=== PATIENT | female | born 1955 | race Caucasian/White ===

== ENCOUNTER 2016-10-30 21:36 | Emergency (ER) | payer OTHER ==
[2016-10-30] MEDS ORDERED: PHENAZOPYRIDINE 100 MG TABLET PO STA (22:10)
[2016-10-30] MEDS ORDERED: NITROFURANTOIN MACRO 100 MG CAPSULE PO STA (22:10)
[2016-10-30] MEDS ORDERED: NITROFURANTOIN MACRO 100 MG CAPSULE PO ONE (22:17)
[2016-10-30] MEDS ORDERED: PHENAZOPYRIDINE 100 MG TABLET PO ONE (22:17)
== END 2016-10-30 22:28 | disposition home or self-care (01) ==
DX: N30.00 Acute cystitis without hematuria (principal); I10 Essential (primary) hypertension; E78.00 Pure hypercholesterolemia, unspecified; E11.9 Type 2 diabetes mellitus without complications
CPT/HCPCS: 81001; 87077; 87086; 87181; 99283; A9270

== ENCOUNTER 2018-03-08 09:57 | Outpatient (CLI) | payer OTHER ==
[2018-03-08 17:38] LABS: HB2 TOTAL 14.6 g/dL; HEMOGLOBIN A1C 0.6 g/dL; HEMOGLOBIN A1C % 5.9 % (4.6-6.2)
[2018-03-08 17:46] LABS: ALBUMIN 4.3 g/dL (3.2-5.5); ALBUMIN/GLOBULIN RATIO 1.3 (1.0-2.2); ALKALINE PHOSPHATASE 54 IU/L (42-121); ALT ALANINE AMINOTRANSFERASE 17 IU/L (10-60); AST ASPARTATE AMINOTRANSFERASE 17 IU/L (10-42); BUN - BLOOD UREA NITROGEN 17 mg/dL (6-20); CALCIUM 9.2 mg/dL (8.5-10.3); CARBON DIOXIDE - CO2 28 mmol/L (21-32); CHLORIDE 104 mmol/L (101-111); CHOL/HDL RATIO 2.8 (<4.4); CHOLESTEROL 143 mg/dL; CREATININE 0.8 mg/dL (0.4-1.0); GFR - MDRD 73 (>89); GLUCOSE 108 mg/dL (70-100); HDL CHOLESTEROL 51 mg/dL; LDL CHOLESTEROL,CALCULATED 80 mg/dL; LDL/HDL RATIO 1.6 (<4.4); SODIUM 139 mmol/L (135-145); TOTAL PROTEIN 7.5 g/dL (6.7-8.2); VLDL CHOLESTEROL 12 mg/dL
== END 2018-03-08 09:58 | disposition home or self-care (01) ==
LOC: LAB.F 09:57
PROVIDERS: ATTEND Physician Assistant
DX: E11.9 Type 2 diabetes mellitus without complications (principal); E78.5 Hyperlipidemia, unspecified
CPT/HCPCS: 36415; 80053; 80061; 83036; 83721

== ENCOUNTER 2018-09-26 17:04 | Emergency (ER) | payer OTHER ==
--- NOTE | 2018-09-26 19:16 | ED Physician Documentation ---
PD HPI URI - Stated complaint Stated Complaint: FLU LIKE SYMPTOMS - Chief complaint Chief Complaint: Fever - History obtained from History obtained from: Patient - History of Present Illness Timing - onset: Yesterday Timing duration: Days (2) Timing details: Abrupt onset, Still present Associated symptoms: Fever, Chills, Nasal congestion, Dry cough. No: NVD Contributing factors: No: Sick contact Worsened by: Activity Similar symptoms before: Has not had sx before Recently seen: Not recently seen Review of Systems Constitutional: reports: Fever, Chills, Myalgias, Fatigue Nose: reports: Congestion Throat: denies: Sore throat Cardiac: denies: Chest pain / pressure Respiratory: reports: Cough GI: denies: Nausea, Vomiting, Diarrhea Neurologic: reports: Headache. 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: section - Present Medications Home Medications: Ambulatory Orders Medication Instructions Recorded Confirmed Benzonatate [Tessalon Perle] 100 mg PO TID PRN #25 capsule 09/26/18 Dexamethasone [Decadron] 4 mg PO DAILY #5 tablet 09/26/18 Levothyroxine [Synthroid] 75 mcg PO QDAC 09/26/18 09/26/18 Oseltamivir [Tamiflu] 75 mg PO BID #10 capsule 09/26/18 Quinapril HCl 10 mg PO 09/26/18 Simvastatin 20 mg PO 09/26/18 09/26/18 metFORMIN [Glucophage] 500 mg PO BIDWM 09/26/18 09/26/18 - Allergies Allergies/Adverse Reactions: Allergies Allergy/AdvReac Type Severity Reaction Status Date / Time No Known Drug Allergies Allergy Verified 09/26/18 17:29 - Social History Does the pt smoke?: No Smoking Status: Never smoker Does the pt drink ETOH?: No Does the pt have substance abuse?: No - Immunizations Immunizations are current?: Yes PD ED PE NORMAL - Vitals Vital signs reviewed: Yes - General General: Alert and oriented X 3, Well developed/nourished - HEENT HEENT: Pharynx benign - Neck Neck: Supple, no meningeal sign, No adenopathy - Cardiac Cardiac: RRR, No murmur - Respiratory Respiratory: Clear bilaterally - Abdomen Abdomen: Soft, Non tender Results - Vitals Vitals: Oxygen O2 Source Room air - Labs Labs: Laboratory Tests 09/26/18 17:30 Influenza A (Rapid) POSITIVE H Influenza B (Rapid) Negative PD MEDICAL DECISION MAKING - ED course Complexity details: considered differential (has flu; does not appear too ill. Opts not to take the Tamiflu), d/w patient Departure - Departure Disposition: Home, Self Care Clinical Impression: Influenza Condition: Stable Record reviewed to determine appropriate education?: Yes Instructions: ED Flu Follow-Up: Heather Ernandez PA-C [Primary Care Provider] - Prescriptions: Benzonatate [Tessalon Perle] 100 mg PO TID PRN #25 capsule PRN Reason: Cough Dexamethasone [Decadron] 4 mg PO DAILY #5 tablet Oseltamivir [Tamiflu] 75 mg PO BID #10 capsule Comments: Your flu test is positive. You likely feel ill for a week or more. The worst of it is commonly the first 3-5 days. Drink lots of fluids. Tylenol ibuprofen or Aleve if needed for fevers and pains. Decadron steroid for the bronchial and throat inflammation will decrease the cough and symptoms. Add Tessalon if needed for cough. You can use the Tamiflu to try to reduce the symptoms of the flu moderately well. Recheck if other problems develop or if not improved a lot over the next 1-2 weeks. Discharge Date/Time: 09/26/18 19:46
[2018-09-26] MEDS ORDERED: DEXAMETHASONE 10 MG/ML VIAL PO STA (19:37)
[2018-09-26] MEDS ORDERED: OSELTAMIVIR 75 MG CAPSULE PO STA (19:37)
[2018-09-26] MEDS ORDERED: ACETAMINOPHEN 325 MG TABLET PO STA (19:37)
[2018-09-26] MEDS ORDERED: BENZONATATE 100 MG CAPSULE PO STA (19:40)
[2018-09-26 19:47] VITALS: BP 137/78
== END 2018-09-26 19:46 | disposition home or self-care (01) ==
LOC: ED 17:04
DX: J11.1 Influenza due to unidentified influenza virus with other respiratory manifestations (principal); I10 Essential (primary) hypertension; E78.00 Pure hypercholesterolemia, unspecified; E11.9 Type 2 diabetes mellitus without complications; Z79.84 Long term (current) use of oral hypoglycemic drugs
CPT/HCPCS: 87275; 87276; 99283; A9270

== ENCOUNTER 2019-03-22 09:50 | Outpatient (CLI) | payer OTHER ==
[2019-03-22 17:49] LABS: ALBUMIN 4.3 g/dL (3.2-5.5); ALBUMIN/GLOBULIN RATIO 1.3 (1.0-2.2); ALKALINE PHOSPHATASE 55 IU/L (42-121); ALT ALANINE AMINOTRANSFERASE 47 IU/L (10-60); AST ASPARTATE AMINOTRANSFERASE 30 IU/L (10-42); BILIRUBIN,TOTAL 0.5 mg/dL (0.2-1.0); BUN - BLOOD UREA NITROGEN 13 mg/dL (6-20); CALCIUM 9.3 mg/dL (8.5-10.3); CARBON DIOXIDE - CO2 26 mmol/L (21-32); CHLORIDE 103 mmol/L (101-111); CHOL/HDL RATIO 2.8 (<4.4); CHOLESTEROL 162 mg/dL; CREATININE 0.8 mg/dL (0.4-1.0); GFR - MDRD 72 (>89); GLUCOSE 154 mg/dL (70-100); HDL CHOLESTEROL 58 mg/dL; LDL CHOLESTEROL,CALCULATED 87 mg/dL; LDL/HDL RATIO 1.5 (<4.4); SODIUM 137 mmol/L (135-145); TOTAL PROTEIN 7.5 g/dL (6.7-8.2); VLDL CHOLESTEROL 17 mg/dL
[2019-03-22 18:18] LABS: HB2 TOTAL 14.7 g/dL; HEMOGLOBIN A1C 0.79 g/dL; HEMOGLOBIN A1C % 7.1 % (4.6-6.2)
== END 2019-03-22 09:51 | disposition home or self-care (01) ==
LOC: LAB.S 09:50
PROVIDERS: ATTEND Physician Assistant
DX: E11.9 Type 2 diabetes mellitus without complications (principal); E78.5 Hyperlipidemia, unspecified; E03.9 Hypothyroidism, unspecified
CPT/HCPCS: 36415; 80053; 80061; 83036; 83721; 84443

== ENCOUNTER 2019-04-06 17:08 | Outpatient (CLI) | payer OTHER ==
--- NOTE | 2019-04-07 09:02 | XRAY Report ---
Reason: FOOT JOINT PAIN,LEFT Procedure Date: 04/06/2019 Accession Number: [id number] / [id number] Procedure: XR - Foot 3 View LT CPT Code: FULL RESULT: EXAM: LEFT FOOT RADIOGRAPHY, 3 VIEWS EXAM DATE: 04/06/2019 05:21 PM. CLINICAL HISTORY: Left-sided foot pain in the region of the fourth and fifth digits over the last 2.5 weeks, in a 63-year-old female. COMPARISON: None. TECHNIQUE: Frontal, lateral and oblique views. FINDINGS: Bones: Normal. No fractures or bone lesions. Joints: Mild narrowing first MTP joint with mild to moderate narrowing of the IP joints diffusely. No subluxation or joint effusion. Soft Tissues: Normal. No soft tissue swelling. 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 No posttraumatic abnormality noted. RADIA
== END 2019-04-06 17:09 | disposition home or self-care (01) ==
LOC: DI 17:08
PROVIDERS: ATTEND Registered Nurse
DX: M19.072 Primary osteoarthritis, left ankle and foot (principal)

== ENCOUNTER 2019-11-23 09:38 | Outpatient (CLI) | payer OTHER ==
[2019-11-23 10:20] LABS: HB2 TOTAL 15.7 g/dL; HEMOGLOBIN A1C 0.85 g/dL; HEMOGLOBIN A1C % 7.1 % (4.6-6.2)
[2019-11-23 10:24] LABS: THYROID STIMULATING HORMONE 2.73 uIU/mL (0.34-5.60)
[2019-11-23 10:26] LABS: FREE T4 (FREE THYROXINE) 0.89 ng/dL (0.58-1.64)
== END 2019-11-23 09:39 | disposition home or self-care (01) ==
LOC: LAB 09:38
PROVIDERS: ATTEND Physician Assistant
DX: E11.9 Type 2 diabetes mellitus without complications (principal); E03.9 Hypothyroidism, unspecified
CPT/HCPCS: 36415; 83036; 84439; 84443

== ENCOUNTER 2020-03-13 13:14 | Emergency (ER) | payer OTHER ==
[2020-03-13 13:43] LABS: BASOPHILS % (AUTO) 0.4 %; EOSINOPHILS # (AUTO) 0.1 10^3/uL (0.0-0.7); EOSINOPHILS % (AUTO) 1.6 %; HGB - HEMOGLOBIN 15.7 g/dL (12.0-16.0); LYMPHOCYTES # (AUTO) 3.2 10^3/uL (1.5-3.5); LYMPHOCYTES % (AUTO) 39.1 %; MEAN CORPUSCULAR HEMOGLOBIN 30.8 pg (27.0-31.0); MEAN CORPUSCULAR HGB CONC 33.9 g/dL (32.0-36.0); MEAN CORPUSCULAR VOLUME 90.8 fL (81.0-99.0); MEAN PLATELET VOLUME 9.8 fL (7.9-10.8); MONOCYTES # (AUTO) 0.5 10^3/uL (0.0-1.0); MONOCYTES % (AUTO) 6.6 %; NEUTROPHILS # (AUTO) 4.3 10^3/uL (1.5-6.6); NEUTROPHILS % (AUTO) 51.9 %; PLT - PLATELET COUNT 248 10^3/uL (130-450); RED CELL DISTRIBUTION WIDTH 13.4 % (12.0-15.0); WHITE BLOOD COUNT 8.2 x10^3/uL (4.8-10.8)
[2020-03-13 13:47] LABS: BILIRUBIN,URINE NEGATIVE (NEGATIVE); GLUCOSE, URINE (UA) 100 mg/dL (NEGATIVE); KETONES,URINE (UA) NEGATIVE (NEGATIVE); LEUKOCYTE ESTERASE, URINE NEGATIVE (NEGATIVE); NITRITE,URINE NEGATIVE (NEGATIVE); OCCULT BLOOD,URINE LARGE (NEGATIVE); PROTEIN,URINE NEGATIVE (NEGATIVE); UROBILINOGEN,URINE 0.2 (NORMAL) E.U./dL (NORMAL)
[2020-03-13 13:50] LABS: CLARITY,URINE CLEAR (CLEAR)
[2020-03-13 13:57] LABS: ALBUMIN/GLOBULIN RATIO 1.4 (1.0-2.2); BILIRUBIN,TOTAL 0.6 mg/dL (0.2-1.0); CALCIUM 9.6 mg/dL (8.5-10.3); CREATININE 0.9 mg/dL (0.4-1.0); TOTAL PROTEIN 8.5 g/dL (6.7-8.2)
[2020-03-13 14:01] LABS: BACTERIA,URINE None Seen /HPF (None Seen); SQUAMOUS EPITHELIAL CELL,UR RARE Squamous (<= Few)
--- NOTE | 2020-03-13 14:39 | ED Physician Documentation ---
PD HPI ABD PAIN - Stated complaint Stated Complaint: BACK PX - LOWER RT - Chief complaint Chief Complaint: Abd Pain - History obtained from History obtained from: Patient - History of Present Illness Timing - onset: Today Timing - duration: Hours Timing - details: Abrupt onset, Now resolved Quality: Sharp, Pain Location: RUQ Radiation: Right flank Improved by: Other (nothing) Worsened by: Other (nothing) Associated symptoms: Nausea, Hematuria. No: Fever, Vomiting, Dysuria Similar symptoms before: Diagnosis (kidney stone) Recently seen: Clinic - Additional information Additional information: 64-year-old female the history of kidney stones came to the clinic today with a chief complaint of right flank pain that started this morning abruptly and was severe. She has had similar pains to this previously with a kidney stone. She was found to have blood in the urine and she is sent to the hospital for tr eatment. She arrives to the hospital by private auto sometime later and she states that about 5 minutes before coming to the hospital her pain is much improved. Review of Systems Constitutional: denies: Fever Eyes: denies: Decreased vision Ears: denies: Ear pain Nose: denies: Rhinorrhea / runny nose, Congestion Throat: denies: Sore throat Cardiac: denies: Chest pain / pressure, Palpitations Respiratory: denies: Dyspnea, Cough GI: reports: Abdominal Pain, Nausea. denies: Vomiting, Constipation, Diarrhea : reports: Hematuria. denies: Dysuria, Frequency Skin: denies: Rash Musculoskeletal: reports: Back pain. 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 - Present Medications Home Medications: Ambulatory Orders Medication Instructions Recorded Confirmed Benzonatate [Tessalon Perle] 100 mg PO TID PRN #25 capsule 09/26/18 Levothyroxine [Synthroid] 75 mcg PO QDAC 09/26/18 09/26/18 Oseltamivir [Tamiflu] 75 mg PO BID #10 capsule 09/26/18 Quinapril HCl 10 mg PO 09/26/18 Simvastatin 20 mg PO 09/26/18 09/26/18 dexAMETHasone [Decadron] 4 mg PO DAILY #5 tablet 09/26/18 metFORMIN [Glucophage] 500 mg PO BIDWM 09/26/18 09/26/18 - Allergies Allergies/Adverse Reactions: Allergies Allergy/AdvReac Type Severity Reaction Status Date / Time No Known Drug Allergies Allergy Verified 03/13/20 13:22 - Social History Does the pt smoke?: No Smoking Status: Never smoker Does the pt drink ETOH?: No Does the pt have substance abuse?: No - Immunizations Immunizations are current?: Yes PD ED PE NORMAL - Vitals Vital signs reviewed: Yes (Hypertensive) - General General: Alert and oriented X 3, No acute distress, Well developed/nourished - HEENT HEENT: Atraumatic, PERRL, EOMI - Neck Neck: Supple, no meningeal sign, No bony TTP - Cardiac Cardiac: RRR, No murmur - Respiratory Respiratory: No respiratory distress, Clear bilaterally - Abdomen Abdomen: Normal bowel sounds, Soft, Non tender, Non distended, No organomegaly - Back Back: No CVA TTP, No spinal TTP - Derm Derm: Normal color, Warm and dry, No rash - Extremities Extremities: No deformity, No edema, No calf tenderness / cord - Neuro Neuro: Alert and oriented X 3, 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2 Humphreys # (Auto) 0.5 Eos # (Auto) 0.1 Baso # (Auto) 0.0 Absolute Nucleated RBC 0.00 Nucleated RBC % 0.0 Sodium 137 Potassium 3.8 Chloride 101 Carbon Dioxide 28 Anion Gap 8.0 BUN 13 Creatinine 0.9 Estimated GFR (MDRD) 63 L Glucose 118 H Calcium 9.6 Total Bilirubin 0.6 AST 37 ALT 49 Alkaline Phosphatase 62 Total Protein 8.5 H Albumin 5.0 Globulin 3.5 Albumin/Globulin Ratio 1.4 Lipase 49 Urine Color YELLOW Urine Clarity CLEAR Urine pH 6.0 Ur Specific [place] 1.015 Urine Protein NEGATIVE Urine Glucose (UA) 100 H Urine Ketones NEGATIVE Urine Occult Blood LARGE H Urine Nitrite NEGATIVE Urine Bilirubin NEGATIVE Urine Urobilinogen 0.2 (NORMAL) Ur Leukocyte Esterase NEGATIVE Urine RBC 11-25 H Urine WBC 0-3 Ur Squamous Epith Cells RARE Squamous Urine Bacteria None Seen Ur Microscopic Review INDICATED Urine Culture Comments NOT INDICATED - Rads (name of study) CT ab/pel w/o Radiology: Prelim report reviewed (Impression: Normal appendix. No urolithiasis. No evidence of urinary obstruction incidental colonic diverticulosis. No acute abnormality identified.), EMP read indepedently (on my read there is some hydro proximally only and this is conistent with recently passed stone. ), See rad report Procedures - Bedside sono Bedside sono by EMP: With use of bedside ultrasound the right kidney is imaged there is evidence of hydronephrosis and the kidney is sonographically nontender. PD MEDICAL DECISION MAKING - ED course Complexity details: reviewed results, re-evaluated patient, considered differential, d/w patient ED course: 64-year-old female with a history of kidney stones appears to have had another kidney stone. She has had resolution of her pain in route to the hospital and I suspect she may have passed her stone. I did check her kidney on the right side she has persistent hydronephrosis and she would like to have CT scan done because she has had experience previously with stones moving back up and she is wondering what she is up against. I found this to be a reasonable idea and we have ordered this test. The remainder of her work-up shows normal blood indices normal chemistries and hematuria.There is no evidence of a stone today and no other stones are present. Departure - Departure Disposition: 01 Home, Self Care Clinical Impression: Renal colic on right side Condition: Stable Instructions: ED Stone Renal Passed Follow-Up: Heather Ernandez PA-C [Primary Care Provider] - Discharge Date/Time: 03/13/20 15:22
--- NOTE | 2020-03-13 14:57 | CT Report ---
PROCEDURE: Abdomen/Pelvis WO INDICATIONS: Right flank pain hematuria TECHNIQUE: Noncontrast 5 mm thick sections acquired from the diaphragms to the symphysis. 5 mm coronal and sagi ttal reformats were then performed. For radiation dose reduction, the following was used: automated exposure control, adjustment of mA and/or kV according to patient size. COMPARISON: None. FINDINGS: Image quality: Excellent. ABDOMEN: Lung bases: Lung bases are clear. Heart size is normal. Solid organs: Liver and spleen are normal in size. Gallbladder negative Pancreas is normal in cont ours. No adrenal nodules. Kidneys are normal in size, without hydronephrosis or nephrolithiasis. Peritoneum and bowel: Unenhanced bowel loops demonstrate normal wall thickness and caliber. No free fluid or air. Normal appendix. Colonic diverticulosis incidentally noted without evidence of acute inflammation. Nodes and vessels: No retroperitoneal or mesenteric adenopathy by size criteria. Aorta and inferior vena cava are normal in caliber. Miscellaneous: No ventral hernias. PELVIS: Genitourinary: Bladder wall thickness is normal. Miscellaneous: No inguinal hernias or adenopathy. Bones: No suspicious bony lesions. No vertebral body compression fractures. IMPRESSION: Normal appendix. No urolithiasis. No evidence of urinary obstruction Incidental colonic diverticulosis. No acute abnormality identified Reviewed by: Stuart Robb MD on 03/13/2020 2:56 PM PDT Approved by: Stuart Robb MD on 03/13/2020 2:56 PM PDT Station ID: [id number]
[2020-03-13 15:22] VITALS: BP 171/96
== END 2020-03-13 15:22 | disposition home or self-care (01) ==
LOC: ED 13:14
DX: N13.2 Hydronephrosis with renal and ureteral calculous obstruction (principal); I10 Essential (primary) hypertension; E11.9 Type 2 diabetes mellitus without complications; Z79.84 Long term (current) use of oral hypoglycemic drugs
CPT/HCPCS: 36415; 74176; 80053; 81001; 81003; 83690; 85025; 87086; 99284

== ENCOUNTER 2020-04-10 09:27 | Outpatient (CLI) | payer OTHER ==
[2020-04-10 15:55] LABS: ALBUMIN 4.3 g/dL (3.2-5.5); ALBUMIN/GLOBULIN RATIO 1.3 (1.0-2.2); ALKALINE PHOSPHATASE 57 IU/L (42-121); ALT ALANINE AMINOTRANSFERASE 46 IU/L (10-60); AST ASPARTATE AMINOTRANSFERASE 37 IU/L (10-42); BILIRUBIN,TOTAL 0.6 mg/dL (0.2-1.0); BUN - BLOOD UREA NITROGEN 11 mg/dL (6-20); CALCIUM 9.2 mg/dL (8.5-10.3); CARBON DIOXIDE - CO2 25 mmol/L (21-32); CHLORIDE 100 mmol/L (101-111); CHOLESTEROL 181 mg/dL; CREATININE 0.7 mg/dL (0.4-1.0); GLUCOSE 141 mg/dL (70-100); HDL CHOLESTEROL 60 mg/dL; LDL CHOLESTEROL,CALCULATED 103 mg/dL; LDL/HDL RATIO 1.7 (<4.4); SODIUM 135 mmol/L (135-145); TOTAL PROTEIN 7.5 g/dL (6.7-8.2); VLDL CHOLESTEROL 18 mg/dL
[2020-04-10 18:45] LABS: HEMOGLOBIN A1c% 7.2 % (4.27-6.07)
== END 2020-04-10 09:28 | disposition home or self-care (01) ==
LOC: LAB.S 09:27
PROVIDERS: ATTEND Physician Assistant
DX: E11.9 Type 2 diabetes mellitus without complications (principal); I10 Essential (primary) hypertension
CPT/HCPCS: 36415; 80053; 80061; 83036; 83721

== ENCOUNTER 2021-01-15 10:02 | Outpatient (CLI) | payer OTHER ==
[2021-01-15 15:22] LABS: ALBUMIN 4.3 g/dL (3.2-5.5); ALBUMIN/GLOBULIN RATIO 1.3 (1.0-2.2); ALKALINE PHOSPHATASE 58 IU/L (42-121); ALT ALANINE AMINOTRANSFERASE 27 IU/L (10-60); AST ASPARTATE AMINOTRANSFERASE 19 IU/L (10-42); BILIRUBIN,TOTAL 0.6 mg/dL (0.2-1.0); BUN - BLOOD UREA NITROGEN 13 mg/dL (6-20); CARBON DIOXIDE - CO2 27 mmol/L (21-32); CHLORIDE 99 mmol/L (101-111); CHOL/HDL RATIO 3.1 (<4.4); CHOLESTEROL 162 mg/dL; CREATININE 0.8 mg/dL (0.4-1.0); GFR - MDRD 72 (>89); GLUCOSE 152 mg/dL (70-100); HDL CHOLESTEROL 53 mg/dL; LDL CHOLESTEROL,CALCULATED 95 mg/dL; LDL/HDL RATIO 1.8 (<4.4); POTASSIUM 4.1 mmol/L (3.5-5.0); SODIUM 135 mmol/L (135-145); TOTAL PROTEIN 7.5 g/dL (6.7-8.2); TRIGLYCERIDES 69 mg/dL; VLDL CHOLESTEROL 14 mg/dL
[2021-01-15 20:49] LABS: ESTIMATED AVERAGE GLUCOSE 154 mg/dL (70-100)
== END 2021-01-15 10:03 | disposition home or self-care (01) ==
LOC: LAB.S 10:02
PROVIDERS: ATTEND Physician Assistant
DX: E11.9 Type 2 diabetes mellitus without complications (principal); E78.5 Hyperlipidemia, unspecified
CPT/HCPCS: 36415; 80053; 80061; 83036; 83721

== ENCOUNTER 2021-09-26 08:19 | Outpatient (CLI) | payer MEDICARE, OTHER ==
[2021-09-26 15:36] LABS: ALBUMIN 4.8 g/dL (3.2-5.5); ALBUMIN/GLOBULIN RATIO 1.7 (1.0-2.2); BILIRUBIN,TOTAL 0.7 mg/dL (0.2-1.0); CALCIUM 9.5 mg/dL (8.5-10.3); CREATININE 0.9 mg/dL (0.4-1.0); TOTAL PROTEIN 7.7 g/dL (6.7-8.2)
[2021-09-26 19:57] LABS: ESTIMATED AVERAGE GLUCOSE 146 mg/dL (70-100); HEMOGLOBIN A1c% 6.7 % (4.27-6.07)
== END 2021-09-26 08:20 | disposition home or self-care (01) ==
LOC: LAB.S 08:19
PROVIDERS: ATTEND Physician Assistant
DX: E11.9 Type 2 diabetes mellitus without complications (principal)
CPT/HCPCS: 36415; 80053; 83036

== ENCOUNTER 2022-02-17 11:02 | Outpatient (CLI) | payer MEDICARE, OTHER ==
[2022-02-17 15:01] LABS: CREATININE,URINE 99.1 mg/dL; MICROALBUMIN,URINE 0.4 mg/dL (0-300.0)
[2022-02-17 20:05] LABS: ESTIMATED AVERAGE GLUCOSE 143 mg/dL (70-100); HEMOGLOBIN A1c% 6.6 % (4.27-6.07)
== END 2022-02-17 11:03 | disposition home or self-care (01) ==
LOC: LAB.S 11:02
PROVIDERS: ATTEND Physician Assistant
DX: E11.9 Type 2 diabetes mellitus without complications (principal)
CPT/HCPCS: 36415; 82043; 82570; 83036

== ENCOUNTER 2023-02-12 09:16 | Outpatient (CLI) | payer MEDICARE ==
[2023-02-12 15:26] LABS: ESTIMATED AVERAGE GLUCOSE 146 mg/dL (70-100); HEMOGLOBIN A1c% 6.7 % (4.27-6.07)
[2023-02-12 15:43] LABS: ALBUMIN 4.6 g/dL (3.2-5.5); ALBUMIN/GLOBULIN RATIO 1.6 (1.0-2.2); ALKALINE PHOSPHATASE 61 IU/L (42-121); ALT ALANINE AMINOTRANSFERASE 26 IU/L (10-60); AST ASPARTATE AMINOTRANSFERASE 20 IU/L (10-42); BILIRUBIN,TOTAL 0.5 mg/dL (0.2-1.0); BUN - BLOOD UREA NITROGEN 18 mg/dL (6-20); CARBON DIOXIDE - CO2 27 mmol/L (21-32); CHLORIDE 100 mmol/L (101-111); CHOLESTEROL 154 mg/dL; CREATININE 0.8 mg/dL (0.6-1.3); GFR - MDRD 72 (>89); GLUCOSE 131 mg/dL (74-104); HDL CHOLESTEROL 52 mg/dL; LDL CHOLESTEROL,CALCULATED 90 mg/dL; LDL/HDL RATIO 1.7 (<4.4); POTASSIUM 4.3 mmol/L (3.5-4.5); SODIUM 135 mmol/L (135-145); TOTAL PROTEIN 7.5 g/dL (6.4-8.9); TRIGLYCERIDES 59 mg/dL (48-352); VLDL CHOLESTEROL 12 mg/dL
== END 2023-02-12 09:17 | disposition home or self-care (01) ==
LOC: LAB.S 09:16
PROVIDERS: ATTEND Physician Assistant
DX: E11.9 Type 2 diabetes mellitus without complications (principal)
CPT/HCPCS: 36415; 80053; 80061; 83036; 83721

== ENCOUNTER 2023-07-02 09:15 | Outpatient (CLI) | payer MEDICARE ==
[2023-07-02 14:48] LABS: CALCIUM 9.7 mg/dL (8.5-10.3); CREATININE 0.8 mg/dL (0.6-1.3)
[2023-07-02 21:29] LABS: ESTIMATED AVERAGE GLUCOSE 154 mg/dL (70-100)
== END 2023-07-02 09:16 | disposition home or self-care (01) ==
LOC: LAB.S 09:15
PROVIDERS: ATTEND Physician Assistant
DX: E03.9 Hypothyroidism, unspecified (principal); E11.9 Type 2 diabetes mellitus without complications
CPT/HCPCS: 36415; 80048; 83036; 84439

== ENCOUNTER 2024-04-12 08:08 | Outpatient (CLI) | payer MEDICARE ==
[2024-04-12 15:42] LABS: CHOL/HDL RATIO 2.4 (<4.4); CHOLESTEROL 132 mg/dL; HDL CHOLESTEROL 54 mg/dL; LDL CHOLESTEROL,CALCULATED 65 mg/dL; LDL/HDL RATIO 1.2 (<4.4); TRIGLYCERIDES 66 mg/dL; VLDL CHOLESTEROL 13 mg/dL
[2024-04-12 20:53] LABS: ESTIMATED AVERAGE GLUCOSE 143 mg/dL (70-100); HEMOGLOBIN A1c% 6.6 % (4.27-6.07)
== END 2024-04-12 08:09 | disposition home or self-care (01) ==
LOC: LAB.S 08:08
PROVIDERS: ATTEND Physician Assistant
DX: E11.9 Type 2 diabetes mellitus without complications (principal)
CPT/HCPCS: 36415; 80061; 83036; 83721